=== PATIENT | female | born 1990 | race Caucasian/White ===

== ENCOUNTER 2017-01-04 22:22 | Inpatient (IN) | payer MEDICAID ==
[~2017-01-04] VITALS: Ht 165.1 cm; Wt 70.8 kg
[~2017-01-04 22:22] MED LIST: DOCU-131 PO; HYDR-3240 PO; IBUP-1223 PO; LABE300T PO; Thyroid; Vicodin; Zoloft
[2017-01-04] MEDS ORDERED: ONDA4TAB7 PO (22:49)
[2017-01-04] MEDS ORDERED: ACET325T14 PO (22:49)
[2017-01-04] MEDS ORDERED: OXYC-302 PO (22:55)
[2017-01-04] MEDS ORDERED: CYCL-259 PO (22:56)
[2017-01-04 23:21] LABS: HEMATOCRIT 40.9 % (34.6-47.8); HEMOGLOBIN 13.1 g/dL (11.7-16.4); WHITE BLOOD COUNT 14.1 x10^3/uL (3.4-10)
[2017-01-04 23:25] LABS: BLOOD UREA NITROGEN 17 mg/dL (7-18)
[2017-01-05] MEDS ORDERED: SODIUM CHLORIDE 0.9% 1,000ML IVBOLUS ONE
[2017-01-05] MEDS ORDERED: ONDANSETRON 2MG/ML, 2ML IVPush ONE
[2017-01-05] MEDS ORDERED: SODIUM CHLORIDE FLUSH 10ML SYR IVF ONE
[2017-01-05] MEDS ORDERED: ONDANSETRON 2MG/ML, 2ML ONE ×2 (00:18→08:29)
[2017-01-05] MEDS ORDERED: MORPHINE SULFATE 4 MG/ML, 1ML ONE (00:18)
[2017-01-05] MEDS ORDERED: OMNIPAQUE 350 MG/ML, 100ML BOTTLE ONE (00:45)
[2017-01-05] MEDS ORDERED: POTASSIUM CHLORIDE 20 MEQ in D5%-0.45% NACL 1,000 ML IV ONE (01:31)
[2017-01-05] MEDS ORDERED: PIPERACILLIN/TAZO/PMX 3.375GM 50 ML ONE (01:36)
[2017-01-05 01:58] VITALS: BP 116/76
[2017-01-05] MEDS ORDERED: MORPHINE SULFATE 4 MG/ML, 1ML IVPush PRN ×2 (02:00)
[2017-01-05] MEDS ORDERED: ONDANSETRON 2MG/ML, 2ML IVPush PRN ×2 (02:00→09:00)
[2017-01-05] MEDS ORDERED: SODIUM CHLORIDE FLUSH 10ML SYR IVF PRN (02:00)
[2017-01-05] MEDS ORDERED: PIPERACILLIN/TAZO/PMX 3.375GM 50 ML IV ONE (02:00)
[2017-01-05] MEDS ORDERED: FENTANYL PF 100 MCG/2ML ONE ×2 (08:06)
[2017-01-05] MEDS ORDERED: MIDAZOLAM 1 MG/ML, 2ML ONE (08:06)
[2017-01-05] MEDS ORDERED: BUPIVACAINE/PF 0.5% ONE (08:10)
[2017-01-05] MEDS ORDERED: EPINEPHRINE 1 MG/ML, 1ML ONE (08:10)
[2017-01-05] MEDS ORDERED: KETOROLAC 30 MG/1 ML ONE (08:29)
[2017-01-05] MEDS ORDERED: DEXAMETHASONE 4 MG/ML, 1ML ONE (08:29)
[2017-01-05] MEDS ORDERED: CEFOTETAN 1 GM ONE (08:29)
[2017-01-05] MEDS ORDERED: SUCCINYLCHOLINE 20 MG/ML, 10ML ONE (08:29)
[2017-01-05] MEDS ORDERED: ROCURONIUM 10 MG/ML ONE (08:29)
[2017-01-05] MEDS ORDERED: NEOSTIGMINE 1 MG/ML, 10ML ONE (08:29)
[2017-01-05] MEDS ORDERED: PROPOFOL 10 MG/ML, 20ML ONE (08:29)
[2017-01-05] MEDS ORDERED: GLYCOPYRROLATE 0.2MG/1ML, 5ML ONE (08:29)
[2017-01-05] MEDS ORDERED: BUPIVACAINE/PF-EPI 0.5% 1:200K INFIL ONE (08:44)
[2017-01-05] MEDS ORDERED: ACETAMINOPHEN 325 MG TABLET PO PRN ×2 (09:00→10:30)
[2017-01-05] MEDS ORDERED: HYDROcodone/APAP 7.5-325MG/15ML UDC PO PRN (09:00)
[2017-01-05] MEDS ORDERED: ALBUTEROL SULFATE 2.5 MG/3 ML NPPB PRN (09:00)
[2017-01-05] MEDS ORDERED: MIDAZOLAM 1 MG/ML, 5ML IV PRN (09:00)
[2017-01-05] MEDS ORDERED: hydrALAzine 20 MG/ML, 1ML IV PRN (09:00)
[2017-01-05] MEDS ORDERED: DIAZEPAM 5 MG/ML, 2ML IVPush PRN (09:00)
[2017-01-05] MEDS ORDERED: HYDROmorphone 1 MG/ML, 1ML IV PRN (09:00)
[2017-01-05] MEDS ORDERED: MEPERIDINE/PF 25MG/0.5ML IVPush PRN (09:00)
[2017-01-05] MEDS ORDERED: LABETALOL 5MG/ML, 20ML IV PRN (09:00)
[2017-01-05] MEDS ORDERED: PROMETHAZINE 25 MG/ML, 1ML IV PRN (09:00)
[2017-01-05] MEDS ORDERED: EPHEDRINE 50 MG/ML, 1ML IVPush PRN (09:00)
[2017-01-05] MEDS ORDERED: FENTANYL PF 100 MCG/2ML IV PRN (09:00)
[2017-01-05] MEDS ORDERED: METOPROLOL 1 MG/ML, 5ML IV PRN (09:00)
[2017-01-05] MEDS ORDERED: OXYcodone 5 MG/5 ML ORAL.SOL UDC PO PRN (09:00)
[2017-01-05] MEDS ORDERED: MEPERIDINE/PF 25MG/0.5ML ONE (09:17)
[2017-01-05] MEDS ORDERED: OXYcodone 5 MG/5 ML ORAL.SOL UDC ONE (09:17)
[2017-01-05] MEDS ORDERED: ONDANSETRON 2MG/ML, 2ML IV PRN (10:30)
[2017-01-05] MEDS ORDERED: morphine SULFATE 10 MG/ML, 1ML IV PRN (10:30)
[2017-01-05] MEDS ORDERED: DIPHENHYDRAMINE 25 MG CAPSULE PO PRN (10:30)
[2017-01-05] MEDS ORDERED: OXYcodone/APAP 5/325MG TABLET PO PRN (10:30)
[2017-01-05] MEDS ORDERED: DIPHENHYDRAMINE 50 MG/ML, 1ML IV PRN (10:30)
[2017-01-05] MEDS ORDERED: ACETAMINOPHEN 650 MG SUPP PR PRN (10:30)
[2017-01-05] MEDS: POTASSIUM CHLORIDE 20 MEQ in D5%-0.45% NACL 1,000 ML IV SCH ×2 (10:30→13:36)
[2017-01-05 10:37] VITALS: BP 113/67
[2017-01-05 13:23] VITALS: BP 119/70
[2017-01-05] MEDS ORDERED: PNEUMOCOCCAL 23 VACCINE IM-VACC STA (15:29)
== END 2017-01-05 16:00 | disposition home or self-care (01) | DRG 343 ==
LOC: ED 23:29 → EDIP 01-05 01:31 → 4NOR 01-05 01:51
PROVIDERS: ADMIT Surgery; ATTEND Surgery
PROC: 0DTJ4ZZ Resection of Appendix, Percutaneous Endoscopic Approach (ICD-10-PCS; principal; 2017-01-05 08:30)
DX: K35.80 Unspecified acute appendicitis (principal); B35.9 Dermatophytosis, unspecified; F17.200 Nicotine dependence, unspecified, uncomplicated; G89.29 Other chronic pain; N94.6 Dysmenorrhea, unspecified; M54.9 Dorsalgia, unspecified; Z30.430 Encounter for insertion of intrauterine contraceptive device
CPT/HCPCS: 36415; 74177; 80048; 81003; 82040; 84703; 85025; 88304; 90732; 96361; 96374; 96375; J0171; J1100; J1885; J2175; J2250; J2405; J2543; J2704; J2710; J3010; J3480; J3490; Q9967; J0330; J7030; S0074

== ENCOUNTER 2017-05-26 13:07 | Emergency (ER) | payer MEDICAID ==
[~2017-05-26] VITALS: Ht 165.1 cm; Wt 67.9 kg
[~2017-05-26 13:07] MED LIST changes: +ACET325T14 PO; +CYCL-259 PO; +ONDA4TAB7 PO; +OXYC-302 PO
[2017-05-26] MEDS ORDERED: LIDOCAINE-MPF 1%, 5ML INFIL ONE (14:30)
[2017-05-26 14:35] LABS: BASOPHILS # (AUTO) 0.03 x10^3/uL (0-0.1); BASOPHILS % (AUTO) 0 % (0-1); EOSINOPHILS # (AUTO) 0.09 x10^3/uL (0-0.4); EOSINOPHILS % (AUTO) 1 % (1-7); LYMPHOCYTES % (AUTO) 34 % (22-44); MD NO; MEAN CORPUSCULAR HEMOGLOBIN 27.8 pg (27.0-34.8); MEAN CORPUSCULAR HGB CONC 33.2 g/dL (32.4-35.8); MEAN CORPUSCULAR VOLUME 83.7 fL (80-100); MEAN PLATELET VOLUME 7.9 fL (7.4-10.4); MONOCYTES # (AUTO) 0.51 x10^3/uL (0.2-0.8); MONOCYTES % (AUTO) 8 % (2-9); NEUTROPHILS # (AUTO) 3.59 x10^3/uL (1.8-6.8); NEUTROPHILS % (AUTO) 56 % (42-75); PLATELET COUNT 277 x10^3/uL (130-400); RED BLOOD COUNT 4.83 x10^6/uL (3.82-5.3); RED CELL DISTRIBUTION WIDTH 12.1 % (9.6-15.2)
[2017-05-26 14:46] LABS: ALBUMIN 3.6 g/dL (3.4-5.0); ANION GAP 6 mmol/L (5-15); CALCIUM 8.4 mg/dL (8.5-10.1); CHLORIDE 110 mmol/L (98-107); CREATININE 0.71 mg/dL (0.55-1.02)
[2017-05-26 14:50] LABS: TROPONIN I < 0.015 ng/mL (0.000-0.045)
[2017-05-26] MEDS ORDERED: SULF1TAB24 PO (16:23)
[2017-05-26] MEDS ORDERED: CEFTRIAXONE 1,000 MG ONE (16:28)
[2017-05-26] MEDS ORDERED: KETOROLAC 30 MG/1 ML ONE (16:29)
[2017-05-26] MEDS ORDERED: CEFTRIAXONE 1,000 MG IM ONE (16:30)
[2017-05-26] MEDS ORDERED: KETOROLAC 30 MG/1 ML IM ONE (16:30)
[2017-05-26] MEDS ORDERED: HYDROmorphone 2 MG/ML, 1ML ONE (16:47)
[2017-05-26] MEDS ORDERED: ONDANSETRON ODT 4 MG ONE (16:48)
[2017-05-26] MEDS ORDERED: ONDANSETRON ODT 4 MG PO ONE (17:00)
[2017-05-26] MEDS ORDERED: HYDROmorphone 1 MG/ML, 1ML IM ONE (17:00)
[2017-05-26 18:06] VITALS: BP 109/75
== END 2017-05-26 19:05 | disposition home or self-care (01) ==
LOC: ED 16:29
DX: L02.413 Cutaneous abscess of right upper limb (principal); F17.200 Nicotine dependence, unspecified, uncomplicated; R50.9 Fever, unspecified; R07.89 Other chest pain
CPT/HCPCS: 10060; 36415; 71045; 80048; 82040; 84484; 85025; 85379; 93005; 96372; 99285; J0696; J1170; Q0162

== ENCOUNTER 2017-09-02 14:16 | Emergency (ER) | payer MEDICAID ==
[~2017-09-02] VITALS: Ht 165.1 cm; Wt 71.0 kg
[~2017-09-02 14:16] MED LIST changes: +SULF1TAB24 PO
[2017-09-02] MEDS ORDERED: SODIUM CHLORIDE FLUSH 10ML SYR IVF ONE (15:00)
[2017-09-02] MEDS ORDERED: MORPHINE SULFATE 4 MG/ML, 1ML IVPush PRN (15:00)
[2017-09-02 15:26] LABS: BASOPHILS # (AUTO) 0.03 x10^3/uL (0-0.1); BASOPHILS % (AUTO) 1 % (0-1); EOSINOPHILS # (AUTO) 0.07 x10^3/uL (0-0.4); EOSINOPHILS % (AUTO) 1 % (1-7); LYMPHOCYTES % (AUTO) 40 % (22-44); MD NO; MEAN CORPUSCULAR HEMOGLOBIN 27.3 pg (27.0-34.8); MEAN CORPUSCULAR HGB CONC 32.9 g/dL (32.4-35.8); MEAN CORPUSCULAR VOLUME 82.9 fL (80-100); MEAN PLATELET VOLUME 7.7 fL (7.4-10.4); MONOCYTES % (AUTO) 7 % (2-9); NEUTROPHILS # (AUTO) 2.97 x10^3/uL (1.8-6.8); NEUTROPHILS % (AUTO) 51 % (42-75); PLATELET COUNT 277 x10^3/uL (130-400); RED BLOOD COUNT 4.48 x10^6/uL (3.82-5.3); RED CELL DISTRIBUTION WIDTH 13.3 % (9.6-15.2)
[2017-09-02 15:36] LABS: ALBUMIN 3.5 g/dL (3.4-5.0); ANION GAP 5 mmol/L (5-15); CALCIUM 8.3 mg/dL (8.5-10.1); CHLORIDE 113 mmol/L (98-107)
[2017-09-02 15:42] LABS: ALANINE AMINOTRANSFERASE 26 U/L (12-78); ALKALINE PHOSPHATASE 62 U/L (45-117); BILIRUBIN,TOTAL 0.6 mg/dL (0.2-1.0); CREATININE 0.83 mg/dL (0.55-1.02)
[2017-09-02] MEDS ORDERED: MORPHINE SULFATE 4 MG/ML, 1ML ONE (15:49)
[2017-09-02] MEDS ORDERED: ONDANSETRON ODT 4 MG ONE (15:52)
[2017-09-02] MEDS ORDERED: ONDANSETRON ODT 4 MG PO ONE (16:00)
[2017-09-02 16:16] LABS: MICROSCOPIC NOT IND
[2017-09-02 16:22] LABS: CULTURE INDICATED? NO
[2017-09-02] MEDS ORDERED: OMNIPAQUE 350 MG/ML, 100ML BOTTLE ONE (17:16)
[2017-09-02] MEDS ORDERED: MAALOX/HYOSCYAMINE/LIDOCAINE 45 ML BTL PO ONE (17:30)
[2017-09-02] MEDS ORDERED: MAALOX/HYOSCYAMINE/LIDOCAINE 45 ML BTL ONE (18:13)
[2017-09-02 18:20] VITALS: BP 119/78
== END 2017-09-02 18:37 | disposition home or self-care (01) ==
LOC: ED 17:06
DX: K29.00 Acute gastritis without bleeding (principal); M54.5 Low back pain; G89.29 Other chronic pain; Z90.49 Acquired absence of other specified parts of digestive tract; Z98.84 Bariatric surgery status
CPT/HCPCS: 36415; 74177; 76700; 80053; 81003; 83690; 84703; 85025; 96374; 99285; Q0162; Q9967

== ENCOUNTER 2017-11-22 10:14 | Emergency (ER) | payer MEDICAID ==
[~2017-11-22] VITALS: Ht 165.1 cm; Wt 72.8 kg
[~2017-11-22 10:14] MED LIST changes: -LABE300T PO; +LABE300T2 PO
[2017-11-22 10:16] VITALS: BP 144/91
== END 2017-11-22 11:31 | disposition home or self-care (01) ==
LOC: ED 11:19
DX: L02.414 Cutaneous abscess of left upper limb (principal); G89.29 Other chronic pain
CPT/HCPCS: 99283

== ENCOUNTER 2018-06-05 20:14 | Emergency (ER) | payer MEDICAID ==
[~2018-06-05] VITALS: Ht 165.1 cm; Wt 68.1 kg
[2018-06-05 20:16] VITALS: BP 164/108
[2018-06-05] MEDS ORDERED: LIDOCAINE 4% CREAM 5GM TUBE TP ONE (21:00)
[2018-06-05 21:09] LABS: BASOPHILS # (AUTO) 0.03 x10^3/uL (0-0.1); BASOPHILS % (AUTO) 1 % (0-1); EOSINOPHILS # (AUTO) 0.12 x10^3/uL (0-0.4); EOSINOPHILS % (AUTO) 2 % (1-7); LYMPHOCYTES # (AUTO) 2.84 x10^3/uL (1-3.4); LYMPHOCYTES % (AUTO) 44 % (22-44); MD NO; MEAN CORPUSCULAR HEMOGLOBIN 27.8 pg (27.0-34.8); MEAN CORPUSCULAR HGB CONC 33.6 g/dL (32.4-35.8); MEAN CORPUSCULAR VOLUME 82.6 fL (80-100); MEAN PLATELET VOLUME 7.7 fL (7.4-10.4); MONOCYTES # (AUTO) 0.49 x10^3/uL (0.2-0.8); MONOCYTES % (AUTO) 8 % (2-9); NEUTROPHILS # (AUTO) 2.98 x10^3/uL (1.8-6.8); NEUTROPHILS % (AUTO) 46 % (42-75); PLATELET COUNT 259 x10^3/uL (130-400); RED BLOOD COUNT 4.72 x10^6/uL (3.82-5.3)
--- NOTE | 2018-06-05 21:19 | NUR ---
JPT MEDICATED PER eMAR
[2018-06-05 21:21] LABS: ALANINE AMINOTRANSFERASE 39 U/L (12-78); ALBUMIN 4.2 g/dL (3.4-5.0); ANION GAP 7 mmol/L (5-15); CHLORIDE 109 mmol/L (98-107); CREATININE 0.76 mg/dL (0.55-1.02)
[2018-06-05 21:23] LABS: ALKALINE PHOSPHATASE 95 U/L (45-117); BILIRUBIN,TOTAL 0.3 mg/dL (0.2-1.0); TOTAL PROTEIN 7.5 g/dL (6.4-8.2)
[2018-06-05] MEDS ORDERED: TRIAMCINOLONE CRM 0.1%, 15GM TP ONE (21:30)
--- NOTE | 2018-06-05 21:55 | NUR ---
Patient/Caregiver given discharge instructions and they have confirmed that they understand the instructions. Patient ambulatory with steady gait.
== END 2018-06-05 21:57 | disposition home or self-care (01) ==
LOC: ED 21:51
DX: L40.9 Psoriasis, unspecified (principal); R10.13 Epigastric pain
CPT/HCPCS: 36415; 80053; 83690; 85025; 99283

== ENCOUNTER 2018-09-07 16:11 | Emergency (ER) | payer MEDICAID ==
[~2018-09-07] VITALS: Ht 167.6 cm; Wt 63.0 kg
--- NOTE | 2018-09-07 16:27 | NUR ---
C-COLLAR IN PLACE, PT IN WHEELCHAIR AND WAITING IN LOBBY WITH FAMILY FOR ROOM ASSIGNMENT
[2018-09-07 17:19] LABS: BASOPHILS # (AUTO) 0.03 x10^3/uL (0-0.1); BASOPHILS % (AUTO) 0 % (0-1); EOSINOPHILS # (AUTO) 0.01 x10^3/uL (0-0.4); EOSINOPHILS % (AUTO) 0 % (1-7); LYMPHOCYTES # (AUTO) 1.77 x10^3/uL (1-3.4); LYMPHOCYTES % (AUTO) 24 % (22-44); MD NO; MEAN CORPUSCULAR HEMOGLOBIN 28.4 pg (27.0-34.8); MEAN CORPUSCULAR VOLUME 88.6 fL (80-100); MEAN PLATELET VOLUME 6.9 fL (7.4-10.4); MONOCYTES # (AUTO) 0.25 x10^3/uL (0.2-0.8); MONOCYTES % (AUTO) 3 % (2-9); NEUTROPHILS # (AUTO) 5.47 x10^3/uL (1.8-6.8); NEUTROPHILS % (AUTO) 73 % (42-75); PLATELET COUNT 389 x10^3/uL (130-400); RED BLOOD COUNT 4.51 x10^6/uL (3.82-5.3); RED CELL DISTRIBUTION WIDTH 13.1 % (9.6-15.2)
[2018-09-07] MEDS ORDERED: HYDROmorphone 1 MG/ML, 1ML VIAL ONE (17:24)
[2018-09-07] MEDS ORDERED: ONDANSETRON 2MG/ML, 2ML ONE (17:24)
[2018-09-07] MEDS ORDERED: DIPH,PERTUSS(ACELL),TET VAC/PF 0.5 ML IM-VACC ONE ×2 (17:24→17:30)
[2018-09-07] MEDS ORDERED: HYDROmorphone 1 MG/ML, 1ML INJ IVPush PRN (17:30)
[2018-09-07] MEDS ORDERED: SODIUM CHLORIDE FLUSH 10ML SYR IVF ONE (17:30)
[2018-09-07] MEDS ORDERED: ONDANSETRON 2MG/ML, 2ML IVPush ONE (17:30)
[2018-09-07 17:31] LABS: ALBUMIN 3.8 g/dL (3.4-5.0); ANION GAP 9 mmol/L (5-15); CALCIUM 8.2 mg/dL (8.5-10.1); CHLORIDE 113 mmol/L (98-107); CREATININE 0.86 mg/dL (0.55-1.02)
--- NOTE | 2018-09-07 18:27 | NUR ---
URINE COLLECTED/SENT TO LAB. ED MEDIC IN TO PLACE SHOULDER IMMOBILIZER. CALL LIGHT WITHIN REACH.
[2018-09-07 18:45] VITALS: BP 122/64
[2018-09-07 19:03] LABS: MICROSCOPIC NOT IND
[2018-09-07 19:06] LABS: CULTURE INDICATED? NO
--- NOTE | 2018-09-07 19:21 | NUR ---
ALL RESULTS BACK, PT FOR RECHECK.
[2018-09-07] MEDS ORDERED: MORPHINE SULFATE 4 MG/ML, 1ML ONE (19:36)
--- NOTE | 2018-09-07 19:49 | NUR ---
MORPHINE GIVEN IV PRIOR TO DISCHARGE PER ERP ORDER. PT AMBULATORY TO DISCHARGE DESK.
--- NOTE | 2018-09-07 19:50 | NUR ---
R SHOULDER IMMOBILIZER PLACED BY ED MEDIC.
[2018-09-07] MEDS ORDERED: MORPHINE SULFATE 4 MG/ML, 1ML IVPush PRN (20:00)
== END 2018-09-07 20:05 | disposition home or self-care (01) ==
LOC: ED 16:53
DX: S43.101A Unspecified dislocation of right acromioclavicular joint, initial encounter (principal); F17.200 Nicotine dependence, unspecified, uncomplicated; V86.59XA Driver of other special all-terrain or other off-road motor vehicle injured in nontraffic accident, initial encounter; Y93.89 Activity, other specified; Y92.89 Other specified places as the place of occurrence of the external cause; Y99.8 Other external cause status
CPT/HCPCS: 29105; 36415; 71045; 72020; 72050; 72072; 72110; 73000; 73030; 80048; 81003; 82040; 85025; 90471; 90715; 96374; 96375; 99284; J1170; J2270; J2405

== ENCOUNTER 2019-04-04 10:49 | Emergency (ER) | payer MEDICAID, OTHER ==
[~2019-04-04] VITALS: Ht 165.1 cm; Wt 72.0 kg
[2019-04-04 11:00] VITALS: BP 127/90
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
--- NOTE | 2019-04-04 11:41 | NUR ---
WARM BLANCKET PROVIDED AT THIS TIME.
--- NOTE | 2019-04-04 11:50 | NUR ---
Patient given discharge instructions and they have confirmed that they understand the instructions. Patient ambulatory with steady gait.
== END 2019-04-04 11:52 | disposition home or self-care (01) ==
LOC: ED 11:15
DX: J10.1 Influenza due to other identified influenza virus with other respiratory manifestations (principal); M79.89 Other specified soft tissue disorders; H92.03 Otalgia, bilateral; R07.9 Chest pain, unspecified; R11.2 Nausea with vomiting, unspecified; R19.7 Diarrhea, unspecified
CPT/HCPCS: 99282

== ENCOUNTER 2019-12-15 09:02 | Emergency (ER) | payer MEDICAID, OTHER ==
[~2019-12-15] VITALS: Ht 167.6 cm; Wt 73.8 kg
--- NOTE | 2019-12-15 09:26 | NUR ---
SEX WORKER OR ESCORT NOTE: EKG TAKEN IN TRIAGE
--- NOTE | 2019-12-15 09:42 | NUR ---
PRINTING ESTIMATOR: PT TO ROOM FROM LOBBY
--- NOTE | 2019-12-15 09:47 | NUR ---
pt ambulated to room with a steady gait. pt in gown and in bed. at bedside.
--- NOTE | 2019-12-15 09:50 | NUR ---
pt states recent visit to [facility] where they performed a ct of her neck. 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
[2019-12-15] MEDS ORDERED: METHOCARBAMOL 750 MG TABLET PO ONE (10:00)
[2019-12-15] MEDS ORDERED: METHOCARBAMOL 750 MG TABLET ONE (10:03)
[2019-12-15] MEDS ORDERED: MORPHINE SULFATE 4 MG/ML, 1ML ONE ×2 (10:04→11:33)
[2019-12-15] MEDS ORDERED: ONDANSETRON 2MG/ML, 2ML ONE (10:11)
[2019-12-15 10:13] LABS: BASOPHILS # (AUTO) 0.01 x10^3/uL (0-0.1); BASOPHILS % (AUTO) 0 % (0-1); EOSINOPHILS # (AUTO) 0.04 x10^3/uL (0-0.4); EOSINOPHILS % (AUTO) 1 % (1-7); LYMPHOCYTES # (AUTO) 1.69 x10^3/uL (1-3.4); LYMPHOCYTES % (AUTO) 31 % (22-44); MD NO; MEAN CORPUSCULAR HEMOGLOBIN 28.5 pg (27.0-34.8); MEAN PLATELET VOLUME 7.4 fL (7.4-10.4); MONOCYTES # (AUTO) 0.45 x10^3/uL (0.2-0.8); MONOCYTES % (AUTO) 8 % (2-9); NEUTROPHILS # (AUTO) 3.25 x10^3/uL (1.8-6.8); NEUTROPHILS % (AUTO) 60 % (42-75); PLATELET COUNT 292 x10^3/uL (130-400); RED BLOOD COUNT 4.38 x10^6/uL (3.82-5.3); RED CELL DISTRIBUTION WIDTH 13.1 % (9.6-15.2)
[2019-12-15] MEDS: MORPHINE SULFATE 4 MG/ML, 1ML IVPush PRN ×2 (10:20→11:34)
[2019-12-15 10:23] LABS: ALANINE AMINOTRANSFERASE 96 U/L (12-78); ALBUMIN 3.7 g/dL (3.4-5.0); ANION GAP 5 mmol/L (5-15); CALCIUM 9.1 mg/dL (8.5-10.1); CHLORIDE 108 mmol/L (98-107); CREATININE 0.82 mg/dL (0.55-1.02)
[2019-12-15 10:28] LABS: ALKALINE PHOSPHATASE 162 U/L (45-117); BILIRUBIN,TOTAL 0.8 mg/dL (0.2-1.0); TOTAL PROTEIN 7.5 g/dL (6.4-8.2)
[2019-12-15] MEDS ORDERED: ONDANSETRON 2MG/ML, 2ML IVPush ONE (10:30)
--- NOTE | 2019-12-15 10:32 | NUR ---
pt to mri now
[2019-12-15 10:33] VITALS: BP 137/99
[2019-12-15] MEDS ORDERED: GADOTERATE 7.5 MMOL/15 ML SYR ONE (11:09)
--- NOTE | 2019-12-15 11:31 | NUR ---
pt back from mri now
== END 2019-12-15 12:16 | disposition home or self-care (01) ==
LOC: ED 10:28
DX: M54.12 Radiculopathy, cervical region (principal); R53.1 Weakness; M25.512 Pain in left shoulder; G89.29 Other chronic pain; R94.31 Abnormal electrocardiogram [ECG] [EKG]
CPT/HCPCS: 36415; 72156; 80053; 84703; 85025; 93005; 96374; 96375; 96376; 99285; A9575; J2270; J2405

== ENCOUNTER 2020-01-09 12:51 | Emergency (ER) | payer MEDICAID ==
[~2020-01-09] VITALS: Ht 167.6 cm; Wt 73.4 kg
[2020-01-09] MEDS ORDERED: SODIUM CHLORIDE 0.9% 1,000 ML IV ONE (13:32)
[2020-01-09] MEDS ORDERED: ONDANSETRON 2MG/ML, 2ML ONE (13:50)
[2020-01-09] MEDS ORDERED: MORPHINE SULFATE 4 MG/ML, 1ML ONE (13:50)
[2020-01-09] MEDS ORDERED: SODIUM CHLORIDE FLUSH 10ML SYR IVF ONE (14:00)
[2020-01-09] MEDS ORDERED: ONDANSETRON 2MG/ML, 2ML IVPush ONE (14:00)
[2020-01-09] MEDS ORDERED: MORPHINE SULFATE 4 MG/ML, 1ML IVPush PRN (14:00)
[2020-01-09 14:03] LABS: BASOPHILS # (AUTO) 0.03 x10^3/uL (0-0.1); BASOPHILS % (AUTO) 1 % (0-1); EOSINOPHILS # (AUTO) 0.02 x10^3/uL (0-0.4); EOSINOPHILS % (AUTO) 0 % (1-7); LYMPHOCYTES # (AUTO) 2.09 x10^3/uL (1-3.4); LYMPHOCYTES % (AUTO) 35 % (22-44); MD NO; MEAN CORPUSCULAR HEMOGLOBIN 27.8 pg (27.0-34.8); MEAN CORPUSCULAR HGB CONC 31.9 g/dL (32.4-35.8); MEAN PLATELET VOLUME 7.4 fL (7.4-10.4); MONOCYTES # (AUTO) 0.48 x10^3/uL (0.2-0.8); MONOCYTES % (AUTO) 8 % (2-9); NEUTROPHILS # (AUTO) 3.32 x10^3/uL (1.8-6.8); NEUTROPHILS % (AUTO) 56 % (42-75); PLATELET COUNT 394 x10^3/uL (130-400); RED BLOOD COUNT 4.81 x10^6/uL (3.82-5.3); RED CELL DISTRIBUTION WIDTH 12.7 % (9.6-15.2)
--- NOTE | 2020-01-09 14:05 | NUR ---
PATIENT BEGAN DRINKING ORAL CONTRAST AT 1400
[2020-01-09 14:11] LABS: ALANINE AMINOTRANSFERASE 54 U/L (12-78); ANION GAP 4 mmol/L (5-15); CALCIUM 9.1 mg/dL (8.5-10.1); CHLORIDE 109 mmol/L (98-107); CREATININE 0.69 mg/dL (0.55-1.02)
[2020-01-09 14:13] LABS: ALKALINE PHOSPHATASE 93 U/L (45-117); BILIRUBIN,TOTAL 0.4 mg/dL (0.2-1.0)
[2020-01-09] MEDS ORDERED: OMNIPAQUE 350 MG/ML, 100ML BOTTLE ONE (14:45)
[2020-01-09 14:52] LABS: HCT (SEDRATE) 41.9 % (34.6-47.8)
[2020-01-09 15:45] VITALS: BP 119/76
== END 2020-01-09 15:48 | disposition home or self-care (01) ==
LOC: ED 15:27
DX: K62.5 Hemorrhage of anus and rectum (principal); K64.8 Other hemorrhoids; G89.29 Other chronic pain; R10.84 Generalized abdominal pain; R11.10 Vomiting, unspecified
CPT/HCPCS: 36415; 74177; 80053; 83690; 85025; 85651; 86140; 93005; 96361; 96374; 96375; 99285; J2270; J2405; J7030; Q9967

== ENCOUNTER 2020-05-27 22:33 | Emergency (ER) | payer MEDICAID ==
[~2020-05-27] VITALS: Ht 167.6 cm; Wt 76.2 kg
[~2020-05-27 22:33] MED LIST changes: -CYCL-259 PO; +CYCL10TA2 PO; +HYDR-1067 PO; -HYDR-3240 PO; -OXYC-302 PO; +OXYC1TAB14 PO
[2020-05-27] MEDS ORDERED: KETOROLAC 30 MG/1 ML ONE (23:08)
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
--- NOTE | 2020-05-27 23:26 | NUR ---
Pain also radiates through to back. IV established; medicated patient per mar.
[2020-05-27] MEDS ORDERED: KETOROLAC 30 MG/1 ML IVPush ONE (23:30)
[2020-05-27 23:31] LABS: BASOPHILS % (AUTO) 1 % (0-1); EOSINOPHILS % (AUTO) 1 % (1-7); LYMPHOCYTES % (AUTO) 38 % (22-44); MD NO; MEAN CORPUSCULAR HEMOGLOBIN 26.3 pg (27.0-34.8); MEAN CORPUSCULAR HGB CONC 32.4 g/dL (32.4-35.8); MEAN PLATELET VOLUME 7.1 fL (7.4-10.4); MONOCYTES % (AUTO) 7 % (2-9); NEUTROPHILS % (AUTO) 54 % (42-75); PLATELET COUNT 359 x10^3/uL (130-400); RED BLOOD COUNT 4.69 x10^6/uL (3.82-5.3); RED CELL DISTRIBUTION WIDTH 13.7 % (9.6-15.2)
[2020-05-27 23:34] LABS: ALANINE AMINOTRANSFERASE 70 U/L (12-78); ALBUMIN 4.1 g/dL (3.4-5.0); ANION GAP 7 mmol/L (5-15); CALCIUM 8.5 mg/dL (8.5-10.1); CHLORIDE 108 mmol/L (98-107); CREATININE 0.67 mg/dL (0.55-1.02)
[2020-05-27 23:39] LABS: ALKALINE PHOSPHATASE 142 U/L (45-117); BILIRUBIN,TOTAL 0.2 mg/dL (0.2-1.0); TOTAL PROTEIN 8.1 g/dL (6.4-8.2); TROPONIN I < 0.015 ng/mL (0.000-0.045)
[2020-05-27] MEDS ORDERED: HYDROmorphone 1 MG/ML, 1ML INJ ONE (23:51)
[2020-05-28] MEDS ORDERED: HYDROmorphone 1 MG/ML, 1ML INJ IVPush PRN (00:30)
[2020-05-28 01:24] VITALS: BP 131/65
--- NOTE | 2020-05-28 01:24 | NUR ---
Discharge instructions given. All questions and concerns addressed. Patient ambulatory with a steady gait. Belongings with patient.
== END 2020-05-28 01:38 | disposition home or self-care (01) ==
LOC: ED 23:28
DX: R07.89 Other chest pain (principal); R05 Cough; R94.31 Abnormal electrocardiogram [ECG] [EKG]; G89.29 Other chronic pain
CPT/HCPCS: 36415; 80053; 84484; 85025; 85379; 93005; 96374; 99284; J1885

== ENCOUNTER 2020-08-26 18:30 | Emergency (ER) | payer MEDICAID ==
[~2020-08-26] VITALS: Ht 167.6 cm; Wt 72.1 kg
[~2020-08-26 18:30] MED LIST changes: -HYDR-1067 PO; +HYDR-2214 PO; +SULF-23 PO; -SULF1TAB24 PO
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
[2020-08-26] MEDS ORDERED: ACETAMINOPHEN 500 MG TABLET ONE (20:12)
[2020-08-26] MEDS ORDERED: KETOROLAC 30 MG/1 ML ONE (20:12)
[2020-08-26] MEDS ORDERED: ACETAMINOPHEN 500 MG TABLET PO ONE (20:30)
[2020-08-26] MEDS ORDERED: KETOROLAC 30 MG/1 ML IM ONE (20:30)
[2020-08-26 21:08] VITALS: BP 122/76
== END 2020-08-26 21:14 | disposition home or self-care (01) ==
LOC: ED 21:10
DX: S93.402A Sprain of unspecified ligament of left ankle, initial encounter (principal); W18.30XA Fall on same level, unspecified, initial encounter; Y93.89 Activity, other specified; Y92.009 Unspecified place in unspecified non-institutional (private) residence as the place of occurrence of the external cause; Y99.8 Other external cause status
CPT/HCPCS: 73590; 73610; 96372; 99284; J1885

== ENCOUNTER 2020-11-09 15:18 | Inpatient (IN) | payer MEDICAID ==
[~2020-11-09] VITALS: Ht 170.2 cm; Wt 86.1 kg
--- NOTE | 2020-11-09 15:24 | NUR ---
BAKING ASSISTANT: PT CALLED FOR TRIAGE, "IN THE BR"
--- NOTE | 2020-11-09 16:38 | NUR ---
loss prevention leader: Pt ambulatory to room from lobby at this time.
[2020-11-09] MEDS ORDERED: SODIUM CHLORIDE FLUSH 10ML SYR IVF ONE (17:30)
[2020-11-09] MEDS ORDERED: SODIUM CHLORIDE 0.9% 1,000ML IVBOLUS ONE (17:30)
[2020-11-09] MEDS ORDERED: ONDANSETRON 2MG/ML, 2ML IVPush ONE (17:30)
[2020-11-09] MEDS ORDERED: MAALOX/HYOSCYAMINE/LIDOCAINE 45 ML BTL PO ONE (17:30)
[2020-11-09] MEDS ORDERED: MORPHINE SULFATE 4 MG/ML, 1ML ONE ×2 (17:57→20:45)
[2020-11-09] MEDS ORDERED: ONDANSETRON 2MG/ML, 2ML ONE (17:57)
[2020-11-09] MEDS ORDERED: MAALOX/HYOSCYAMINE/LIDOCAINE 45 ML BTL ONE (17:57)
[2020-11-09] MEDS: PLEASE ENTER WEIGHT MC SCH (18:00)
[2020-11-09 18:17] LABS: BASOPHILS % (AUTO) 1 % (0-1); EOSINOPHILS % (AUTO) 1 % (1-7); LYMPHOCYTES % (AUTO) 23 % (22-44); MEAN CORPUSCULAR HEMOGLOBIN 27.4 pg (27.0-34.8); MEAN CORPUSCULAR HGB CONC 32.2 g/dL (32.4-35.8); MEAN PLATELET VOLUME 7.5 fL (7.4-10.4); MONOCYTES % (AUTO) 9 % (2-9); NEUTROPHILS % (AUTO) 68 % (42-75); PLATELET COUNT 301 x10^3/uL (130-400); RED BLOOD COUNT 4.61 x10^6/uL (3.82-5.3); RED CELL DISTRIBUTION WIDTH 16.2 % (9.6-15.2)
[2020-11-09] MEDS: MORPHINE SULFATE 4 MG/ML, 1ML IVPush PRN ×2 (18:19→20:51)
[2020-11-09 18:24] LABS: ALBUMIN 3.2 g/dL (3.4-5.0); ANION GAP 6 mmol/L (5-15); CALCIUM 9.2 mg/dL (8.5-10.1); CHLORIDE 105 mmol/L (98-107)
[2020-11-09 18:30] LABS: ALANINE AMINOTRANSFERASE 193 U/L (12-78); ALKALINE PHOSPHATASE 293 U/L (45-117); BILIRUBIN,TOTAL 1.1 mg/dL (0.2-1.0); CREATININE 0.77 mg/dL (0.55-1.02); TOTAL PROTEIN 7.3 g/dL (6.4-8.2)
[2020-11-09 18:44] LABS: MICROSCOPIC INDICATED
[2020-11-09] MEDS ORDERED: METOCLOPRAMIDE 5 MG/ML, 2ML IVPush ONE (19:00)
[2020-11-09] MEDS ORDERED: PANTOPRAZOLE 40 MG IV IVPush ONE (19:00)
--- NOTE | 2020-11-09 19:05 | NUR ---
Report to CHARY Ariza. All questions answered, transfer of care at this time. Pt resting in [facility], watching TV, ESTEFANI.
[2020-11-09] MEDS ORDERED: PANTOPRAZOLE 40 MG IV ONE (19:13)
[2020-11-09] MEDS ORDERED: METOCLOPRAMIDE 5 MG/ML, 2ML ONE (19:13)
[2020-11-09] MEDS ORDERED: OMNIPAQUE 350 MG/ML, 100ML BOTTLE ONE (19:46)
--- NOTE | 2020-11-09 20:20 | NUR ---
Anthony vega in [facility] - 11/09/20 at 2033 by [email or web address] ATTEMPTED REPORT TO CHRIS ORTIZ UNABLE TO TAKE REPORT AT THIS TIME
--- NOTE | 2020-11-09 20:42 | NUR ---
patient sitting in bed comfortably. no other needs at this time
--- NOTE | 2020-11-09 21:55 | NUR ---
attempted report to jasmin wing. unable to take report at this time. rn to call back
[2020-11-09] MEDS ORDERED: ONDANSETRON ODT 4 MG PO PRN (22:00)
[2020-11-09] MEDS ORDERED: POTASSIUM CHLORIDE 20 MEQ TAB.ER.PRT PO ONE (22:00)
[2020-11-09 22:17] VITALS: BP 126/78
[2020-11-09] MEDS: LACTATED RINGERS 1,000 ML IV SCH (22:30)
[2020-11-09] MEDS: ENOXAPARIN 40 MG/0.4 ML SQ SCH (22:31)
[2020-11-09] MEDS: morphine SULFATE 10 MG/ML, 1ML IVPush PRN (22:52)
[2020-11-10 00:56] VITALS: BP 114/74
[2020-11-10] MEDS: PLEASE ENTER WEIGHT MC SCH ×3 (02:00→17:42)
[2020-11-10] MEDS: ONDANSETRON 2MG/ML, 2ML IVPush PRN ×3 (02:43→13:06)
[2020-11-10] MEDS: morphine SULFATE 10 MG/ML, 1ML IVPush PRN ×5 (03:27→21:54)
[2020-11-10] MEDS: LACTATED RINGERS 1,000 ML IV SCH ×2 (03:27→09:27)
[2020-11-10 06:34] LABS: BASOPHILS % (AUTO) 1 % (0-1); EOSINOPHILS % (AUTO) 2 % (1-7); LYMPHOCYTES % (AUTO) 44 % (22-44); MEAN CORPUSCULAR HGB CONC 32.7 g/dL (32.4-35.8); MEAN PLATELET VOLUME 7.5 fL (7.4-10.4); MONOCYTES % (AUTO) 9 % (2-9); NEUTROPHILS % (AUTO) 45 % (42-75); PLATELET COUNT 229 x10^3/uL (130-400); RED CELL DISTRIBUTION WIDTH 15.8 % (9.6-15.2)
[2020-11-10 06:45] LABS: ANION GAP 2 mmol/L (5-15); CALCIUM 8.4 mg/dL (8.5-10.1); CHLORIDE 109 mmol/L (98-107)
[2020-11-10 06:51] VITALS: BP 119/75
[2020-11-10 06:51] LABS: CHOL/HDL RATIO 1.5; CHOLESTEROL, TOTAL 153 mg/dL (140-239); HDL CHOL % 66 % (28-40); HDL CHOLESTEROL (DIRECT) 101 mg/dL (40-60); LDL CHOLESTEROL,CALCULATED 40 mg/dL (54-169); LDL/HDL RATIO 0.4 (0.5-3.0); TRIGLYCERIDES 62 mg/dL (50-200); VLDL CHOLESTEROL 12 mg/dL (0-25)
[2020-11-10] MEDS: SENNA/DOCUSATE TABLET PO SCH (09:00)
[2020-11-10] MEDS: ACETAMINOPHEN 325 MG TABLET PO SCH ×3 (09:00→21:42)
[2020-11-10] MEDS: POLYETHYLENE GLYCOL 17 GM PACKET PO SCH (09:00)
[2020-11-10] MEDS: FAMOTIDINE 20 MG/2 ML IVPush SCH ×2 (09:19→21:42)
[2020-11-10 13:37] VITALS: BP 102/68
[2020-11-10 17:20] LABS: ANA SCREEN NEGATIVE (Negative)
[2020-11-10 18:47] VITALS: BP 115/76
[2020-11-10] MEDS: ENOXAPARIN 40 MG/0.4 ML SQ SCH (21:43)
[2020-11-11] MEDS: LACTATED RINGERS 1,000 ML IV SCH ×4 (00:07→18:08)
[2020-11-11 00:22] VITALS: BP 133/80
[2020-11-11] MEDS: PLEASE ENTER WEIGHT MC SCH ×2 (01:32→10:00)
[2020-11-11] MEDS: morphine SULFATE 10 MG/ML, 1ML IVPush PRN ×3 (05:22→13:39)
[2020-11-11] MEDS: ONDANSETRON 2MG/ML, 2ML IVPush PRN ×3 (05:22→21:19)
[2020-11-11 06:53] LABS: ALBUMIN 1.9 g/dL (3.4-5.0); ANION GAP 6 mmol/L (5-15); CHLORIDE 110 mmol/L (98-107)
[2020-11-11 06:57] LABS: ALANINE AMINOTRANSFERASE 75 U/L (12-78); ALKALINE PHOSPHATASE 178 U/L (45-117); BILIRUBIN,TOTAL 0.4 mg/dL (0.2-1.0); CREATININE 0.35 mg/dL (0.55-1.02); TOTAL PROTEIN 4.8 g/dL (6.4-8.2)
[2020-11-11 07:05] VITALS: BP 118/81
[2020-11-11] MEDS: ACETAMINOPHEN 325 MG TABLET PO SCH ×3 (09:00→21:11)
[2020-11-11] MEDS: POLYETHYLENE GLYCOL 17 GM PACKET PO SCH (09:00)
[2020-11-11] MEDS: SENNA/DOCUSATE TABLET PO SCH (09:00)
[2020-11-11 09:11] LABS: BASOPHILS % (AUTO) 1 % (0-1); EOSINOPHILS % (AUTO) 1 % (1-7); LYMPHOCYTES % (AUTO) 34 % (22-44); MEAN CORPUSCULAR HEMOGLOBIN 28.1 pg (27.0-34.8); MEAN CORPUSCULAR HGB CONC 32.7 g/dL (32.4-35.8); MEAN PLATELET VOLUME 7.9 fL (7.4-10.4); MONOCYTES % (AUTO) 8 % (2-9); NEUTROPHILS % (AUTO) 56 % (42-75); PLATELET COUNT 247 x10^3/uL (130-400); RED BLOOD COUNT 3.79 x10^6/uL (3.82-5.3); RED CELL DISTRIBUTION WIDTH 15.8 % (9.6-15.2)
[2020-11-11] MEDS: FAMOTIDINE 20 MG/2 ML IVPush SCH ×2 (10:16→21:10)
[2020-11-11 13:52] VITALS: BP 125/86
[2020-11-11] MEDS ORDERED: NICOTINE 21 MG/24 HR PATCH.TD24 TD SCH (18:00)
[2020-11-11] MEDS ORDERED: NICOTINE 21 MG/24 HR PATCH.TD24 ONE (18:02)
[2020-11-11 18:59] VITALS: BP 126/86
[2020-11-11] MEDS: OXYcodone IR 5MG TABLET PO PRN (21:19)
[2020-11-11] MEDS: ENOXAPARIN 40 MG/0.4 ML SQ SCH (22:00)
[2020-11-12 00:33] VITALS: BP 124/80
[2020-11-12 04:40] LABS: BASOPHILS % (AUTO) 1 % (0-1); EOSINOPHILS % (AUTO) 1 % (1-7); LYMPHOCYTES % (AUTO) 50 % (22-44); MEAN CORPUSCULAR HEMOGLOBIN 28.1 pg (27.0-34.8); MEAN CORPUSCULAR HGB CONC 32.5 g/dL (32.4-35.8); MEAN PLATELET VOLUME 7.5 fL (7.4-10.4); MONOCYTES % (AUTO) 9 % (2-9); NEUTROPHILS % (AUTO) 38 % (42-75); PLATELET COUNT 230 x10^3/uL (130-400); RED BLOOD COUNT 3.63 x10^6/uL (3.82-5.3); RED CELL DISTRIBUTION WIDTH 15.8 % (9.6-15.2)
[2020-11-12 04:50] LABS: ALANINE AMINOTRANSFERASE 64 U/L (12-78); ALBUMIN 2.2 g/dL (3.4-5.0); CALCIUM 8.2 mg/dL (8.5-10.1); CHLORIDE 111 mmol/L (98-107)
[2020-11-12 04:53] LABS: ALKALINE PHOSPHATASE 191 U/L (45-117); BILIRUBIN,TOTAL 0.3 mg/dL (0.2-1.0); CREATININE 0.53 mg/dL (0.55-1.02); TOTAL PROTEIN 5.5 g/dL (6.4-8.2)
[2020-11-12 05:08] LABS: ANION GAP 4 mmol/L (5-15)
[2020-11-12 07:20] VITALS: BP 121/82
[2020-11-12] MEDS: POLYETHYLENE GLYCOL 17 GM PACKET PO SCH (08:18)
[2020-11-12] MEDS: ACETAMINOPHEN 325 MG TABLET PO SCH (08:18)
[2020-11-12] MEDS: FAMOTIDINE 20 MG/2 ML IVPush SCH (08:18)
[2020-11-12] MEDS: OXYcodone IR 5MG TABLET PO PRN (08:19)
[2020-11-12] MEDS: SENNA/DOCUSATE TABLET PO SCH (08:19)
[2020-11-12] MEDS: LACTATED RINGERS 1,000 ML IV SCH (11:20)
[2020-11-12] MEDS ORDERED: OXYC5TAB98 PO (13:29)
[2020-11-12 14:01] VITALS: BP 118/85
[2020-11-12] MEDS ORDERED: FAMOTIDINE 20 MG TABLET PO SCH (21:00)
== END 2020-11-12 14:15 | disposition home or self-care (01) | DRG 432 ==
LOC: ED 15:48 → SUATTDRO 21:11 → EDIP 22:05 → 3N 22:15
PROVIDERS: ADMIT Student in an Organized Health Care Education/Training Program; ATTEND Internal Medicine
DX: K70.10 Alcoholic hepatitis without ascites (principal); K85.20 Alcohol induced acute pancreatitis without necrosis or infection; F41.1 Generalized anxiety disorder; E86.0 Dehydration; K29.20 Alcoholic gastritis without bleeding; F17.210 Nicotine dependence, cigarettes, uncomplicated; E87.6 Hypokalemia; Z98.84 Bariatric surgery status; Z90.49 Acquired absence of other specified parts of digestive tract; Z80.0 Family history of malignant neoplasm of digestive organs
CPT/HCPCS: 36415; 74177; 80048; 80053; 80061; 80074; 80299; 81001; 82390; 83036; 83690; 83735; 84703; 85025; 86038; 86850; 86900; 87086; 87806; 93005; 96374; G0378; J1650; J2405; Q0162; Q9967; C9113; G0475; J2270; J2765; J7030; J7120